=== PATIENT | male | born 1990 | race Caucasian/White ===

== ENCOUNTER 2021-03-06 20:20 | Emergency (ER) | payer MEDICAID, OTHER ==
[2021-03-06 20:39] VITALS: BP 124/87; PULSE 87
--- NOTE | 2021-03-06 21:02 | EDM.PDOC ---
ED HPI GENERAL MEDICAL PROBLEM - General Chief Complaint: Laceration Stated Complaint: LAC TO THUMB Time Seen by Provider: 03/06/21 20:43 Source of Information: Reports: Patient History Limitations: Reports: No Limitations - History of Present Illness INITIAL COMMENTS - FREE TEXT/NARRATIVE: 31-year-old male presents the emergency department today with complaints of a laceration to his left thumb. 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 He has concerns as he does have a history of von Willebrand's disease, which is a bleeding disorder so he felt he needed to come in. States he is otherwise healthy and has no significant medical history. - Related Data Allergies Allergy/AdvReac Type Severity Reaction Status Date / Time cefaclor [From [facility]] Allergy Cannot Verified 03/06/21 20:29 Remember Home Meds: Home Meds . [No Known Home Meds] 03/06/21 [History] Past Medical History Other Musculoskeletal History: Right arm fracture, Right meniscus tear x 2 Other Hematologic History: Factor 8 disorder, Von Willebrand's II - Past Surgical History HEENT Surgical History: Reports: Oral Surgery, Other (See Below) Other HEENT Surgeries/Procedures: Tooth extraction x 12 as child, jaw surgery Other Musculoskeletal Surgeries/Procedures:: Right meniscus repair x 2 Social & Family History - Tobacco Use Tobacco Use Status *Q: Never Tobacco User Second Hand Smoke Exposure: No - Caffeine Use Caffeine Use: Reports: None - Recreational Drug Use Recreational Drug Use: No ED ROS GENERAL - Review of Systems Review Of Systems: Comprehensive ROS is negative, except as noted in HPI. ED EXAM, SKIN/RASH Exam: See Below Exam Limited By: No Limitations General Appearance: Alert, WD/WN, No Apparent Distress Ears: Normal External Exam, Hearing Grossly Normal Nose: Normal Inspection Throat/Mouth: Normal Inspection, Normal Lips, Normal Voice, No Airway Compromise Head: Atraumatic Neck: Normal Inspection, Supple Respiratory/Chest: No Respiratory Distress, No Accessory Muscle Use Cardiovascular: Normal Peripheral Pulses, Regular Rate, Rhythm Peripheral Pulses: 2+: Radial (L), Radial (R) GI/Abdominal: No Distention (Male) Exam: Deferred Rectal (Males) Exam: Deferred Back Exam: Normal Inspection Extremities: Normal Range of Motion. No: Normal Inspection (The tip ofHalf centimeter C-shaped laceration noted to patient's arm. Laceration is very superficial and bleeding is controlled) Neurological: Alert, Oriented, Normal Cognition Psychiatric: Normal Affect Skin: Warm, Dry, Normal Color, No Rash. No: Intact (Half centimeter C-shaped laceration noted to the tip of the patient's left thumb) Location, Skin: Upper Extremity, Left Characteristics: Other (C-shaped) Lymphatic: No Adenopathy Course - Vital Signs Text/Narrative:: Again patient presents with 1/2 cm C-shaped laceration noted to the tip of his left thumb. Bleeding is controlled at the time of my assessment. Normally would not treat this laceration however with the patient's history of von Willebrand's disease I have elected to use Dermabond to close the wound. Patient tolerated the procedure very well. I have advised him to wear a bandage as he states he is a frequent golfer and this will just protect the area. Last Recorded V/S: Last Vital Signs Temp 97 F 03/06/21 20:38 Pulse 87 03/06/21 20:38 Resp 16 03/06/21 20:38 BP 124/87 03/06/21 20:38 Pulse Ox 99 03/06/21 20:38 Departure - Departure Time of Disposition: 21:03 Disposition: Home, Self-Care 01 Condition: Good Clinical Impression: Superficial laceration of left hand Qualifiers: Encounter type: initial encounter Qualified Code(s): S61.412A - Laceration without foreign body of left hand, initial encounter - Discharge Information Instructions: Sutures, [place], or Adhesive Wound Closure, [id number] Referrals: PCP,Not In Area [Primary Care Provider] - Additional Instructions: You were seen in the emergency department today with a laceration noted to your left thumb. Bleeding was controlled at the time of my assessment. No sutures are needed to repair this area. Due to your history of von Willebrand's disease I elected to place some Dermabond over the area. Do not pick at this as it will fall off on its own as the wound heals. May shower but immediately pat the area dry. If you are going to be using your hands such as at work or golfing recommend wearing a bandage over the area as it may be tender to the touch. Sepsis Event Note (ED) - Evaluation Sepsis Screening Result: No Definite Risk - Focused Exam Vital Signs: Vital Signs Temp Pulse Resp BP Pulse Ox 03/06/21 20:38 97 F 87 16 124/87 99
== END 2021-03-06 21:13 | disposition home or self-care (01) ==
LOC: JD.ED 20:20
DX: S61.012A Laceration without foreign body of left thumb without damage to nail, initial encounter (principal); Z88.1 Allergy status to other antibiotic agents; W26.0XXA Contact with knife, initial encounter; Y92.69 Other specified industrial and construction area as the place of occurrence of the external cause
CPT/HCPCS: 12001; 99282; 99282-25